=== PATIENT | male | born 2000 | race Caucasian/White ===

== ENCOUNTER 2019-06-30 01:42 | Emergency (ER) | payer OTHER ==
--- NOTE | 2019-06-30 01:59 | ED ---
Substance Abuse/Use - HPI Summary HPI Summary: LEVEL 5 CAVEAT: HPI LIMITED DUE TO PATIENT INTOXICATION This patient is a 18 year old male presenting to [facility] with a chief complaint of ETOH intoxication. - History Of Current Complaint Chief Complaint: EDSubstanceAbuse Stated Complaint: ETOH PER EMS Time Seen by Provider: 06/30/19 01:46 Hx Obtained From: EMS Overdose Characteristics: Oral PMH/Surg Hx/FS Hx/Imm Hx Endocrine/Hematology History: Denies: Hx Anticoagulant Therapy Cardiovascular History: Denies: Hx Pacemaker/ICD History: Denies: Hx Dialysis Sensory History: Denies: Hx Eye Prosthesis, Hx Legally Blind, Hx Deafness Opthamlomology History: Denies: Hx Eye Prosthesis, Hx Legally Blind Neurological History: Denies: Hx Dementia Psychiatric History: Denies: Hx Autism - Surgical History Surgery Procedure, Year, and Place: HX OF Craniosynostosis - Social History Alcohol Use: Occasionally Substance Use Type: Reports: Marijuana Smoking Status (MU): Never Smoked Tobacco - Additional Comments History Additional Comments: LEVEL 5 CAVEAT: HPI LIMITED DUE TO PATIENT INTOXICATION Review of Systems - ROS Summary Review of Systems Summary: LEVEL 5 CAVEAT: ROS LIMITED DUE TO PATIENT INTOXICATION Psychological: Other - Intoxication All Other Systems Reviewed And Are Negative: No Physical Exam - Summary Physical Exam Summary: Appearance: Well-appearing, Well-nourished, lying in bed comfortably Skin: Warm, dry, no obvious rash Eyes: sclera anicteric, no conjunctival pallor ENT: mucous membranes moist, pharynx appears normal Neck: Supple, nontender Respiratory: Clear to auscultation, no signs of respiratory distress Cardiovascular: Normal S1, S2. No murmurs. Normal distal pulses in tibial and radial bilaterally. Abdomen: Soft, nontender, normal active bowel sounds present Musculoskeletal: Normal, Strength/ROM Intact Neurological: Obtunded Triage Information Reviewed: Yes Vital Signs On Initial Exam: Temp Pulse Resp BP Pulse Ox 97.3 F 80 16 118/66 93 06/30/19 01:50 06/30/19 05:21 06/30/19 01:50 06/30/19 05:21 06/30/19 05:21 Vital Signs Reviewed: Yes Procedures - Sedation Patient Received Moderate/Deep Sedation with Procedure: No Course/Dx - Course Course Of Treatment: This patient is a 18 year old male presenting to [facility] with a chief complaint of ETOH intoxication. The patient sobered up and ready to go home. A plan for discharge was discussed with the patient and he was agreeable with this plan. - Diagnoses Provider Diagnoses: Alcohol intoxication Discharge ED - Sign-Out/Discharge Documenting (check all that apply): Patient Departure - Discharge - Discharge Plan Condition: Good Disposition: HOME Patient Education Materials: Alcohol Intoxication (ED) Referrals: [facility] [Outside] - Billing Disposition and Condition Condition: GOOD Disposition: Home - Attestation Statements Document Initiated by Magdy: Yes Documenting Scribe: Eliu Fischer Provider For Whom Magdy is Documenting (Include Credential): Dann Yarbrough MD Scribe Attestation: Eliu Marlow scribed for Dann Yarbrough MD on 07/04/19 at 1812. Scribe Documentation Reviewed: Yes Provider Attestation: The documentation as recorded by the Eliu miranda accurately reflects the service I personally performed and the decisions made by me, Dann Yarbrough MD Status of Scribe Document: Viewed
--- NOTE | 2019-06-30 09:56 | ED ---
Progress - Progress Note Progress Note: This patient is a 18 y/o M brought to [facility] with a chief complaint of alcohol intoxication. Patient is a sign-out from Dr. Dann Yarbrough to Dr. Dann Denton at 0700 on 06/30/19 at shift change pending sobriety. Re-Evaluation - Re-Evaluation First Eval Re-Evaluation Time: 10:48 Change: Improved Comment: Patient reports feeling better, however because his TAMICA was 360 at 0200 this morning, patient needs be to taken home by a sober [employer] driver. Patient does not have his phone or [employer] ID card on him, so he will use his [employer] ID number for a cab. Course/Dx - Course Course Of Treatment: This patient is a 18 y/o M brought to [facility] with a chief complaint of alcohol intoxication. Patient is a sign-out from Dr. Dann Yarbrough to Dr. Dann Denton at 0700 on 06/30/19 at shift change pending sobriety. In the ED, patient sobered, was able to ambulate around the department , and will be discharged home with dx of alcohol intoxication. Patient undersatnds and agrees with this plan. Mr. Ochoa was clinically sober but his BA had been quite high so he was sent with a sober crude oil driver. - Diagnoses Provider Diagnoses: Alcohol intoxication Discharge ED - Sign-Out/Discharge Documenting (check all that apply): Patient Departure - Discharge, Receiving Sign-Out Receiving patient FROM: Dann Yarbrough - Discharge Plan Condition: Good Disposition: HOME Patient Education Materials: Alcohol Intoxication (ED) Referrals: [facility] [Outside] - Billing Disposition and Condition Condition: GOOD Disposition: Home - Attestation Statements Document Initiated by Magdy: Yes Documenting Scribe: Shyam Veloz Provider For Whom Magdy is Documenting (Include Credential): MD Estephania Richardsibdejuan Attestation: Shyam Marlow, scribed for Dann Denton MD on 06/30/19 at 1105. Scribe Documentation Reviewed: Yes Provider Attestation: The documentation as recorded by the Shyam miranda accurately reflects the service I personally performed and the decisions made by me, Dann Denton MD Status of Scribe Document: Viewed Procedures - Sedation Patient Received Moderate/Deep Sedation with Procedure: No
[2019-06-30 11:06] VITALS: BP 129/88
== END 2019-06-30 11:05 | disposition home or self-care (01) ==
LOC: ED 01:42
DX: F10.929 Alcohol use, unspecified with intoxication, unspecified (principal)
CPT/HCPCS: 36415; 80320; 99284; G0480